=== PATIENT | male | born 1990 | race Caucasian/White ===

== ENCOUNTER → 2017-12-09 | Outpatient (CLI) | payer BC ==
[~2017-12-09] MED LIST: CYCL10 PO; HYDACE5 PO; IBUP600 PO
[2017-12-10 14:17] LABS: Rheumatoid Factor, Serum Negative (Negative)
[2017-12-11 11:14] LABS: Antinuclear Antibody Screen Negative (Negative)
== END ==
LOC: LAB SHORT 11:30 → LAB 11:30
PROVIDERS: Nurse Practitioner Family
DX: M25.50 Pain in unspecified joint (principal)
CPT/HCPCS: 85651; 86038; 86140; 86430

== ENCOUNTER 2019-01-11 21:50 | Emergency (ER) | payer BC, MEDICAID ==
[~2019-01-11] VITALS: Ht 188 cm; Wt 102.1 kg
[2019-01-11] MEDS ORDERED: Prednisone20 MG PO (22:19)
[2019-01-11] MEDS ORDERED: CYCL10 PO (22:19)
== END 2019-01-11 23:12 | disposition home or self-care (01) ==
LOC: ER 21:50
DX: G89.29 Other chronic pain (principal); M54.5 Low back pain
CPT/HCPCS: 96372; 99283-25; J1885; J7512

== ENCOUNTER 2024-08-15 22:35 | Emergency (ER) | payer BC ==
[~2024-08-15] VITALS: Ht 188 cm; Wt 106.6 kg
[~2024-08-15 22:35] MED LIST changes: +Prednisone20 MG PO
[2024-08-15 22:48] VITALS: BP 130/95
[2024-08-16] MEDS ORDERED: RX Prepack Albuterol 1 PREPACK/6.7 GM INH UD ONE (00:25)
[2024-08-16] MEDS ORDERED: PredniSONE 20 MG Tab PO ONE (00:25)
[2024-08-16] MEDS ORDERED: PRED20 PO (00:33)
== END 2024-08-16 01:00 | disposition home or self-care (01) ==
LOC: ER 22:35
DX: J20.8 Acute bronchitis due to other specified organisms (principal); J45.909 Unspecified asthma, uncomplicated; Z91.018 Allergy to other foods
CPT/HCPCS: 71046; 87077; 87081; 87185; 87430; 99283-25; A9270; J7512